=== PATIENT | male | born 1960 | race American Indian/Alaskan Native ===

== ENCOUNTER 2018-04-17 20:40 | Emergency (ER) | payer MEDICARE ==
[2018-04-17 21:15] VITALS: BP 144/85
--- NOTE | 2018-04-17 22:49 | Emergency Department Report ---
- General Chief complaint: Wound/Laceration Stated complaint: HIGH BP/LEG INFECTION Time Seen by Provider: 04/17/18 22:42 Source: patient Mode of arrival: Ambulatory Limitations: No Limitations - History of Present Illness Initial comments: 58-year-old -Citizen Of [place] male comes in complaint of right knee infection. Patient reports that this is been going on for 4 months and has been treated several times. Patient reports that a screw that he has in his right lower extremity had protruded through the skin while getting on his truck. Patient reports that he has had several prescriptions for antibiotics from different hospitals. Patient also requests a refill on his amlodipine 10 mg daily. It was noted in triage that his blood pressure is 144/85. -: month(s) (4) Location: RLE Severity scale (0 -10): 0 Improves with: none Worsens with: none - Related Data Previous Rx's Medication Instructions Recorded Last Taken Type Sulfamethoxazole/Trimethoprim 1 each PO BID 10 Days #20 tablet 04/17/18 Unknown Rx [Bactrim DS TAB] amLODIPine [Norvasc] 5 mg PO DAILY #30 tab 04/17/18 Unknown Rx Abscess Boil HPI - HPI Chief Complaint: Wound/Laceration Stated Complaint: HIGH BP/LEG INFECTION Time Seen by Provider: 04/17/18 22:42 Home Medications: Previous Rx's Medication Instructions Recorded Last Taken Type Sulfamethoxazole/Trimethoprim 1 each PO BID 10 Days #20 tablet 04/17/18 Unknown Rx [Bactrim DS TAB] amLODIPine [Norvasc] 5 mg PO DAILY #30 tab 04/17/18 Unknown Rx ED Review of Systems ROS: Stated complaint: HIGH BP/LEG INFECTION Other details as noted in HPI ED Past Medical Hx - Past Medical History Previous Medical History?: Yes Hx Hypertension: Yes - Surgical History Past Surgical History?: Yes Additional Surgical History: R. knee surgery - Social History Smoking Status: Never Smoker - Medications Home Medications: Home Medications Medication Instructions Recorded Confirmed Last Taken Type Sulfamethoxazole/Trimethoprim 1 each PO BID 10 Days #20 tablet 04/17/18 Unknown Rx [Bactrim DS TAB] amLODIPine [Norvasc] 5 mg PO DAILY #30 tab 04/17/18 Unknown Rx ED Physical Exam - General Limitations: No Limitations ED Course Vital Signs 04/17/18 21:11 Temperature 98.7 F Pulse Rate 98 H Respiratory 16 Rate Blood Pressure 144/85 O2 Sat by Pulse 100 Oximetry ED Medical Decision Making - Medical Decision Making Patient has been evaluated by this provider fast track. Please patient on Bactrim double strength 10 days. We'll refill amlodipine 10 mg. Advised patient to follow up with the primary care provider they are best to manage her chronic diseases. Critical care attestation.: If time is entered above; I have spent that time in minutes in the direct care of this critically ill patient, excluding procedure time. ED Disposition Clinical Impression: Abscess Hypertension Qualifiers: Hypertension type: unspecified Qualified Code(s): I10 - Essential (primary) hypertension Disposition: TO HOME OR SELFCARE Is pt being admited?: No Does the pt Need Aspirin: No Condition: Stable Instructions: Hypertension (ED) Additional Instructions: Take medication as prescribed. Follow-up with the primary care provider in the next 3-5 days. Prescriptions: amLODIPine [Norvasc] 5 mg PO DAILY #30 tab Sulfamethoxazole/Trimethoprim [Bactrim DS TAB] 1 each PO BID 10 Days #20 tablet Referrals: PRIMARY CARE [Primary Care Provider] - 3-5 Days [facility] [Provider Group] - 3-5 Days Forms: Work/School Release Form(ED)
== END 2018-04-17 23:00 | disposition home or self-care (01) ==
LOC: ED 20:40
DX: L02.415 Cutaneous abscess of right lower limb (principal); I10 Essential (primary) hypertension
CPT/HCPCS: 99282